=== PATIENT | female | born 2005 | race Caucasian/White ===

== ENCOUNTER 2024-05-12 21:15 | Emergency (ER) | payer MEDICAID, SELFPAY ==
[2024-05-12 21:15] VITALS: BMI 22.7
[2024-05-12 21:41] VITALS: BP 139/87; PULSE 65; RESP 19; TEMP 37.2; O2SAT 99
--- NOTE | 2024-05-12 21:53 | XR_ITS ---
Examination: Toes, right foot second digit 3 views Technique: Toes AP oblique lateral 3 views second digit right foot Date and time of exam: May 12, 2024 2156 hours INDICATIONS: Right second digit swelling and pain this week FINDINGS: Soft tissue swelling about the second digit No fracture No cortical bone destruction No foreign body IMPRESSION: No cortical destruction or foreign body
--- NOTE | 2024-05-12 22:06 | PD.EDANKLE ---
Lower Extremity Injury RME/HPI General Chief Complaint: Ankle/Foot Injury Stated Complaint: R SECOND TOE PAIN Time Seen by Provider: 05/12/24 21:52 Arrival date/time: 05/12/24 21:15 19F with no significant PMH presents to ED with several days of R 2nd toe pain/swelling. Patient may have injured it at the gym. Limitations: no limitations Related Data Previous Rx's ?Medication ?Instructions ?Recorded ibuprofen 600 mg tablet 600 mg PO Q8H PRN pain #30 tabs 07/07/20 Allergies Allergy/AdvReac Type Severity Reaction Status Date / Time No Known Allergies Allergy Verified 05/12/24 21:18 Review of Systems Review of Systems Systems Reviewed: All systems reviewed, normal except as documented Constitutional Constitutional: Reports system reviewed and no additional complaints, except as documented, Denies fever(s) and Denies headache(s) ENT Ears, Nose, Mouth, and Throat: Denies disequilibrium and Denies headache(s) Cardiovascular Cardiovascular: Reports system reviewed and no additional complaints, except as documented, Denies chest pain and Denies dyspnea Respiratory Respiratory: Reports system reviewed and no additional complaints, except as documented, Denies cough and Denies dyspnea Gastrointestinal Gastrointestinal: Reports system reviewed and no additional complaints, except as documented, Denies abdominal pain, Denies nausea and Denies vomiting Musculoskeletal Musculoskeletal: Reports as per HPI and Reports arthralgias Neurologic Neurologic: Reports system reviewed and no additional complaints, except as documented, Denies confusion, Denies disequilibrium and Denies headache(s) Psychiatric Psychiatric: Denies confusion Past Medical History Social History SMOKING STATUS: Never smoker ED Exam General Limitations: Present no limitations General appearance: Present alert and in no apparent distress Head Head exam: Present atraumatic Eye Eye exam: Present normal appearance, PERRL and EOMI ENT ENT exam: Present normal exam, normal oropharynx and mucous membranes moist Neck Neck exam: Present normal inspection, full ROM and trachea midline Chest Chest inspection: Present normal inspection and symmetric chest wall rise Respiratory Respiratory exam: Present normal lung sounds bilaterally Cardiovascular Cardiovascular exam: Present regular rate, normal rhythm and normal heart sounds Abdominal Exam Abdominal exam: Present soft and normal bowel sounds Extremities Exam Extremities exam: Present full ROM Expanded Lower Extremity Exam Foot/toe exam: Present full ROM (R 2nd toe), tenderness and swelling Back Exam Back exam: Present normal inspection and full ROM Neurological Exam Neurological exam: Present alert, oriented X3 and CN II-XII intact Psychiatric Psychiatric exam: Present normal affect and normal mood Skin Skin exam: Present warm, dry, intact and normal color Course Quality Measures none Orders Category Date Time Status XR toe RT min 2V Stat Exams 05/12/24 21:53 Completed Naproxen [Naprosyn] Med 05/12/24 22:23 Discontinued 500 mg PO X1 ONE Vital Signs Vital signs: Vital Signs Temperature 99 F 05/12/24 21:41 Pulse Rate 65 05/12/24 21:41 Respiratory Rate 19 05/12/24 21:41 Blood Pressure 139/87 H 05/12/24 21:41 Pulse Oximetry (%) 99 05/12/24 21:41 Oxygen Delivery Method Room Air 05/12/24 21:41 O2 at 99% on RA and WNLs Extremity Injury, Lower MDM Narrative MDM Narrative:: 19F with no significant PMH presents to ED with several days of R 2nd toe pain/swelling. Patient may have injured it at the gym. Physical exam reveals mild R 2nd toe tenderness/swelling, but no redness. ROM intact. Patient is afebrile, calm, and alert. XR no fx. More likely MSK-related pain vs cellulitis vs gout. Director Stage and meds given. Patient data External records reviewed:: [facility] previous records Clinical information provided by:: patient Social determinants that could affect healthcare access:: none Patient has the following chronic illnesses:: none How is presenting disease/condition affected by chronic disease/condition?: no chronic disease Evaluation data The following diagnostics were reviewed and interpreted by me:: radiology exam(s) Lab and/or radiology exams considered but not ordered:: ordered Interpretation Summary: above Medications / Prescriptions Medications or Prescriptions considered but not ordered:: not ordered Medication administrations:: Medication Administration History Discontinued Medications Naproxen (Naproxen 250 Mg Tablet) 500 mg PO X1 ONE Stop: 05/12/24 22:24 n/a Consultations Consultation(s) initiated? (list below): No Diagnosis Extremity Injury, Lower Differential Diagnosis: ankle sprain and strain, acute internal derangement of knee, puncture wound of foot, fracture of toe, ankle fracture and other (gout, cellulitis, toe pain) Most likely diagnosis given after review of the tests above:: toe pain Admission Indicated Admission indicated?: not indicated Admission Request Was there a request for admission?: No Disposition Plan Disposition Plan: Discharge Discharge Attestation Discharge Attestation: The patient and all family members were given an opportunity to ask questions and understood the discharge instructions. Discharge instructions specifically effects, indications for sooner follow up or return to the emergency department, and the expected course of current diagnosis. Patient condition: Stable Discharge Plan Plan Patient Disposition: HOME (Self Care) Disposition Comment: Stable Prescriptions/Referrals Prescriptions/Med Rec: No Action ibuprofen 600 mg tablet 600 mg PO Q8H PRN (Reason: pain) Qty: 30 0RF Problem List Clinical Impression: Pain in toe Patient/Caregiver Discharge Instructions Education Materials: ED Pain, Acute, Uncertain Cause Additional Instructions: Please follow-up with PCP within 24-48 hours and return immediately if symptoms worsen. If problem persists, recommend outpatient PT and/or MRI follow-up. In the meantime, rest, use ice/heat, and/or compression. If skin becomes red and/or swelling/pain gets worse, see PCP for possible skin infection. Print Language: [place] Stand Alone Forms: Patient Portal Info Letter ZACH/EARLINE Supervising Physician DUSTIN Supervising Physician: Dr. Young
[2024-05-12] MEDS: NAPROXEN 250 MG TABLET 500 MG PO (22:32)
== END 2024-05-12 22:51 | disposition home or self-care (01) ==
LOC: SERX 22:45
PROVIDERS: Emergency Provider Emergency Medicine; PCP Nurse Practitioner
DX: M79.674 Pain in right toe(s) (principal)
CPT/HCPCS: 73660; 99283; A9270